=== PATIENT | male | born 1980 | race Two or more races ===

== ENCOUNTER 2024-05-07 04:16 | Day surgery (SDC) | payer OTHER ==
[2024-05-06 11:17] VITALS: BMI 26.6
[2024-05-07] MEDS ORDERED: LIDOCAINE HCL/PF 2% SDV 5ML VIAL ONE (10:04)
[2024-05-07] MEDS ORDERED: MIDAZOLAM HCL 2 MG/2 ML SINGLE DOSE VIAL ONE (10:04)
[2024-05-07] MEDS ORDERED: ROCURONIUM BROMIDE 50 MG/5 ML SYRINGE ONE ×2 (10:04→13:51)
[2024-05-07] MEDS ORDERED: DEXAMETHASONE SOD PHOSPHATE 4 MG/1 ML VIAL ONE (10:04)
[2024-05-07] MEDS ORDERED: KETOROLAC TROMETHAMINE 30 MG/1 ML VIAL ONE (10:04)
[2024-05-07] MEDS ORDERED: ONDANSETRON 4 MG/2 ML VIAL ONE (10:04)
[2024-05-07] MEDS ORDERED: SUCCINYLCHOLINE CHLORIDE 200 MG/10 ML SYRINGE ONE (10:04)
[2024-05-07] MEDS ORDERED: PROPOFOL 40 ML ONE (10:05)
[2024-05-07] MEDS ORDERED: ACETAMINOPHEN INJECTION 100 ML ONE (10:39)
[2024-05-07] MEDS ORDERED: ONDANSETRON 4 MG/2 ML VIAL IVPUSH PRN (11:40)
[2024-05-07] MEDS ORDERED: BUPIVACAINE HCL/PF 0.25% (2.5MG/ML) 10 ML VIAL ONE ×2 (11:40→13:30)
[2024-05-07] MEDS: ceFAZolin SODIUM 1 GM VIAL IVPB ONE (12:47)
[2024-05-07] MEDS: BUPIVACAINE HCL/PF 2.5 MG/ML - 30 ML VIAL IJ ONE (12:49)
[2024-05-07] MEDS ORDERED: LIDOCAINE HCL 1%, 10 MG/ML (20ML VIAL) ONE (13:29)
[2024-05-07] MEDS ORDERED: SUGAMMADEX SODIUM 200 MG/2 ML VIAL ONE (13:47)
[2024-05-07] MEDS ORDERED: SEVOFLURANE 250 ML BTL ONE (14:03)
[2024-05-07] MEDS ORDERED: oxyCODONE HCL 5 MG TABLET PO PRN (14:28)
[2024-05-07] MEDS: LACTATED RINGERS SOLUTION 1,000 ML IV SCH (14:30)
[2024-05-07] MEDS: oxyCODONE HCL 5 MG TABLET PO PRN (16:32)
[2024-05-07] MEDS ORDERED: oxyCODONE HCL 5 MG TABLET ONE (16:33)
[2024-05-07 17:00] VITALS: BP 89/49; PULSE 63; RESP 20; TEMP 97.5
[2024-05-07] MEDS ORDERED: METOCLOPRAMIDE HCL INJECTION 10 MG/2 ML VIAL ONE (17:47)
[2024-05-07] MEDS: METOCLOPRAMIDE HCL INJECTION 10 MG/2 ML VIAL IVPUSH ONE (17:57)
== END 2024-05-07 19:05 | disposition home or self-care (01) ==
LOC: JASU-SURG 04:16 → EDSEX 08:00 → JASU-SURG 19:05
PROVIDERS: ATTEND Surgery
PROC: 8E0W4CZ Robotic Assisted Procedure of Trunk Region, Percutaneous Endoscopic Approach (ICD-10-PCS; 2024-05-07)
PROC: 0JB60ZZ Excision of Chest Subcutaneous Tissue and Fascia, Open Approach (ICD-10-PCS; 2024-05-07)
PROC: 0WUF4JZ Supplement Abdominal Wall with Synthetic Substitute, Percutaneous Endoscopic Approach (ICD-10-PCS; principal; 2024-05-07 10:30)
DX: K42.9 Umbilical hernia without obstruction or gangrene (principal); D17.1 Benign lipomatous neoplasm of skin and subcutaneous tissue of trunk
CPT/HCPCS: 11406; 49593; S2900; 86850; 86900; 86901; 88304-TC; 94760; C1781; J0131